=== PATIENT | female | born 1935 | race Caucasian/White ===

== ENCOUNTER 2016-09-11 14:25 | Day surgery (SDC) | payer OTHER ==
[~2016-09-11] VITALS: Ht 142.2 cm; Wt 60.7 kg
[2016-09-11] MEDS ORDERED: ENALAPRIL (15:07)
[2016-09-11] MEDS ORDERED: ASPIRIN (15:07)
[2016-09-11 15:09] VITALS: Ht 142.2 cm; Wt 60.7 kg
[2016-09-11 15:21] VITALS: BP 106/68; PULSE 79; RESP 26
[2016-09-11] MEDS ORDERED: PROPOFOL 40 ML ONE (15:45)
[2016-09-11 17:20] VITALS: BP 137/66; PULSE 68; RESP 26
--- NOTE | 2016-10-07 08:28 | GILP ---
DATE OF PROCEDURE: 09/26/2016 PROCEDURE PERFORMED: 1. Colonoscopy and polypectomy. 2. Biopsy and tattooing. PREOP DIAGNOSIS: Positive occult blood in stool. POSTOP DIAGNOSES: 1. Colonoscopy all the way to the cecum. 2. Large sigmoid polyp at 30 cm from the anus, was removed using the snare and electrocautery. 3. Flat polypoid mass at 25 cm from the anus, biopsies were taken for histopathology. 4. The area was tattooed with Ivett ink. 5. Another sigmoid polyp at 15 cm from the anus was removed using the snare and electrocautery. 6. Internal hemorrhoids. INDICATION FOR THE PROCEDURE: Ms Lizbeth Reyes is an 80- year-old female patient who had a positive occult blood in stool. She was scheduled for colonoscopy for further evaluation. The procedure and possible complications were well explained to the patient and the family and consent was obtained. DESCRIPTION OF PROCEDURE: Under influence of anesthesia, the colonoscope was carefully introduced in the rectum and under direct vision it was advanced all the way to the cecum. Findings: The patient had a large sigmoid polyp at 30 cm from the anus and it was removed using the snare and electrocautery. The patient had a large flat polypoid mass at 25 cm from the anus, and multiple biopsies were taken for histopathology. The area was tattooed with Ivett ink. The patient was again noted to have another sigmoid polyp at 15 cm from the anus, and it was removed using the snare and electrocautery. She was noted to have internal hemorrhoids. She tolerated the procedure very well. There was no complication from the procedure. At the end of procedure. She was awake, with stable vital signs and she was discharged homoe to the care of her family. IMPRESSION: Please see postoperative diagnoses. PLAN: 1. Await histopathology report. 2. The patient needs surgical evaluation for segmental resection of the sigmoid colon at the site of the flat sigmoid polyp. Dictated By: MD BRETT Mora/[email or web address]/[email or web address] /Document#: [id number]
== END 2016-09-11 19:04 | disposition home or self-care (01) ==
LOC: GIL 14:25
PROVIDERS: ATTEND Internal Medicine Gastroenterology
DX: K92.1 Melena (principal); D12.5 Benign neoplasm of sigmoid colon; K64.8 Other hemorrhoids; E78.5 Hyperlipidemia, unspecified
CPT/HCPCS: 45380; 45381; 45385; 88305; Z7610